=== PATIENT | female | born 1975 | race Two or more races ===

== ENCOUNTER 2018-09-06 19:42 | Emergency (ER) | payer SELFPAY ==
[2018-09-06] MEDS ORDERED: NS 500 ML IV ONE (20:21)
[2018-09-06] MEDS ORDERED: ONDANSETRON 4 MG/2 ML VIAL IVP ONE (20:21)
[2018-09-06] MEDS ORDERED: HYDROmorphONE/DILAUDID 2 MG/ML INJ IVP ONE (20:21)
[2018-09-06] MEDS ORDERED: DEXAMETHASONE 10 MG/ML VIAL IVP ONE (20:37)
[2018-09-06] MEDS ORDERED: METOCLOPRAMIDE 10 MG/2 ML VIAL IVP ONE (20:37)
--- NOTE | 2018-09-06 20:37 | EDPHY ---
H & P Time Seen by Provider: 09/06/18 20:06 HPI/ROS: HPI Headache. 43-year-old female by private vehicle with her . This patient reports that she developed a gradual onset posterior headache about 1 week ago. She reports that has been persistent since then. She reports that has been bothering her at night when she is laying flat and she has had a difficult time sleeping because of this. She describes it as an aching and throbbing pain. She also states that it is worse when she bends forward. She has not had any associated nausea or vomiting. No changes in vision. Denies any neck pain. No bowel or bladder incontinence. No confusion. No loss of sensation or weakness in her extremities. 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 Clayton Norman. ROS: Constitutional: No fever, no chills. No weakness. Eyes: No discharge. No changes in vision. ENT: No sore throat. No nasal congestion or rhinorrhea. Respiratory: No cough. No shortness of breath. Cardiac: No chest pain, no palpitations. Gastrointestinal: No abdominal pain, no vomiting, no diarrhea. Genitourinary: No hematuria. No dysuria or increased frequency with urination. Musculoskeletal: No back pain. No neck pain. No myalgias or arthralgias. Skin: No rashes. Neurological: As above. No focal weakness or altered sensation. Past medical history: Left parietal craniectomy to remove lytic bone lesion July of 2015. She does have an allergy to CT contrast dye. Migraine headaches and . Social history: Nonsmoker. Here with her . No alcohol. Physical Exam: General Appearance: Alert, she appears well. She does not appear in distress. This patient is responding to questions appropriately and in full sentences. This patient appears well-hydrated and well-nourished. Eyes: Pupils equal and round and reactive to light at 3-2 mm bilaterally. No photophobia. No nystagmus. No pallor or injection. No lid edema, erythema or injection. On funduscopic exam I do not appreciate papilledema. Respiratory: There are no retractions, lungs are clear to auscultation with good air movement bilaterally. Cardiovascular: Regular rate and rhythm. No murmur. Gastrointestinal: Abdomen is soft and nontender, no masses, bowel sounds normal. No focal tenderness at McBurney's point. No Tucker sign. Neurological: Motor sensory function is grossly intact. Cranial nerves are normal. Gait is normal. Skin: Warm and dry, no rashes. Musculoskeletal: Neck is supple and nontender. No pain on flexion of her neck. Extremities are symmetrical. All joints range without pain or impingement. Psychiatric: No agitation. No depression. Database: EKG: Imaging: Noncontrast CT head: Essentially negative. No acute pathology. No CT evidence of hydrocephalus. Results were discussed with staff radiologist Dr. Kike Johnson. Procedures: Procedure: Lumbar puncture. Indication: Headache, symptoms to suggest idiopathic intracranial hypertension. After verbal informed consent from patient explaining the risks including infection, bleeding, and neurologic damage, a lumbar puncture was performed after the patient was prepped and draped in the usual fashion. The back was anesthetized with 1% lidocaine. Approximately 12 cc of clear fluid was obtained. Opening pressure 200 mm of mercury. There were no complications. The procedure was performed by myself. Emergency department course: Triage vital signs reviewed and are normal. IV was placed. She was started on IV normal saline with 500 cc to be given over the next hour. She was initially given 0.5 mg of IV hydromorphone and 4 mg of IV Zofran. This was then followed by 25 mg of IV Benadryl, 10 mg of IV Reglan and 10 mg of IV Decadron. Need for CT imaging discussed with the patient. She endorses. 9:40 p.m., the patient is feeling better. She denies any significant headache at this time. She is medicated as above. Speaking with her through a swing type lathe operator I explained the results of her CT imaging. I explained my concern about possible idiopathic intracranial hypertension. I discussed doing a lumbar puncture. The risks of this procedure were discussed. She verbally consents. 10:20 p.m., spoke with on-call [place] neurologist Dr. Anna. Case discussed with him in detail. Opening pressure was upper limit of normal. The patient's presentation however is classic for idiopathic intracranial hypertension. He recommended that we start the patient on acetazolamide 250 mg 3 times daily and have her follow up with Neurology locally later this week. Visual acuities were performed in the emergency department and are 20/25 bilaterally without correction. 10:50 p.m., CSF results are unremarkable. The patient was re-evaluated. She states that she is feeling much better. She denies any headache currently. Repeat neurologic Assessment is nonfocal. She is up and ambulatory with a normal gait. She feels comfortable going home. Plan will be to treat her for presumed idiopathic intracranial hypertension. I will start her on a low-dose of acetazolamide as recommended by Neurology above. Follow-up with Neurology was discussed with her and her . Return to emergency department precautions reviewed. All of their questions were answered. The patient was discharged from the emergency department in good condition with her . All communication and discharge instructions were done with a swing type lathe operator. Differential Diagnosis: The differential diagnosis on this patient includes but is not limited to migraine headache, idiopathic intracranial hypertension. Hydrocephalus, preeclampsia, subarachnoid hemorrhage, meningitis, encephalitis unlikely. This represents a partial list of diagnoses considered. These considerations are based on history, physical exam, past history, reassessment and diagnostic testing. Smoking Status: Never smoked Constitutional: Initial Vital Signs Heart Rate 77 09/06/18 19:51 Respiratory Rate 18 09/06/18 19:51 Blood Pressure 123/73 H 09/06/18 19:51 O2 Sat (%) 99 09/06/18 19:51 O2 Delivery Mode Room Air Allergies/Adverse Reactions: Iodinated Contrast- Oral and IV Dye [IV Dye, Iodine Containing] Allergy (Severe , Verified 09/06/18 19:50) Home Medications: Medication Instructions Recorded Acetaminophen [Tylenol 325mg (*)] 650 mg PO Q4 PRN #0 tab 01/08/16 Ibuprofen 09/06/18 acetaZOLAMIDE [Diamox] 250 mg PO TID #21 tab 09/06/18 Medical Decision Making - Data Points Laboratory Results: Laboratory Results 09/06/18 21:20 09/06/18 21:20 Microbiology Results: MICROBIOLOGY 09/06/18 21:59 Cerebral Spinal Fluid Gram Stain - Final 09/06/18 21:59 Cerebral Spinal Fluid CSF Culture - Preliminary Medications Given: Discontinued Medications Dexamethasone (Decadron Injection) 10 mg IVP EDNOW ONE Stop: 09/06/18 20:38 Last Admin: 09/06/18 21:15 Dose: 10 mg Diphenhydramine HCl (Benadryl Injection) 25 mg IVP EDNOW ONE Stop: 09/06/18 20:38 Last Admin: 09/06/18 21:12 Dose: 25 mg Hydromorphone HCl (Dilaudid) 0.5 mg IVP EDNOW ONE Stop: 09/06/18 20:22 Last Admin: 09/06/18 21:10 Dose: 0.5 mg Sodium Chloride (Ns) 500 mls @ 0 mls/hr IV ONCE ONE; Wide Open PRN Reason: Protocol Stop: 09/06/18 20:22 Last Admin: 09/06/18 21:07 Dose: 500 mls Metoclopramide HCl (Reglan Injection) 10 mg IVP EDNOW ONE Stop: 09/06/18 20:38 Last Admin: 09/06/18 21:13 Dose: 10 mg Ondansetron HCl (Zofran) 4 mg IVP EDNOW ONE Stop: 09/06/18 20:22 Last Admin: 09/06/18 21:07 Dose: 4 mg Departure - Departure Disposition: Home, Routine, Self-Care Clinical Impression: Headache, Idiopathic intracranial hypertension Condition: Good Instructions: Idiopathic Intracranial Hypertension (ED) Additional Instructions: Read and follow provided instructions. Follow-up with Neurology, Dr. Kike Jung or 1 of his partners this week for re -evaluation as discussed. Call his office tomorrow morning for appointment time. Explain this is for an emergency department follow-up Take medication as prescribed. Return to the emergency department for worsening headache, confusion, nausea and vomiting, visual changes or other serious concerns. Tania y siga las instrucciones proveidas - - Leandro wilma shahana de seguimiento con el Dr. Kike Jung, Neurologo o con chad de monisha compaero esta semana a gerber lo comentamos. Llame a correa oficina para la hota de la shahana. Expliquele que es un seguimiento de la daniel de emergencia. - [place] el medicamento recetado. - Regrese a la daniel de emergencia si empeora el dolor de louie, confusion, nause y vomito, cambios en la vista u otras preocupaciones serias. Referrals: Kike Jung DO [Medical Doctor] - As per Instructions Prescriptions: acetaZOLAMIDE [Diamox] 250 mg PO TID #21 tab
[2018-09-06 21:40] LABS: PLATELET COUNT 315 10^3/uL (150-400)
[2018-09-06 23:50] VITALS: BP 106/74
== END 2018-09-06 23:35 | disposition home or self-care (01) ==
PROC: 009U3ZX Drainage of Spinal Canal, Percutaneous Approach, Diagnostic (ICD-10-PCS; principal; 2018-09-06)
DX: G93.2 Benign intracranial hypertension (principal)
CPT/HCPCS: 96374; J1100; J1170; J1200; J2405; J2765

== ENCOUNTER 2018-09-08 15:10 | Emergency (ER) | payer SELFPAY ==
[2018-09-08] MEDS ORDERED: DEXAMETHASONE 10 MG/ML VIAL IVP ONE (15:46)
[2018-09-08] MEDS ORDERED: NS 1,000 ML IV ONE (15:46)
[2018-09-08] MEDS ORDERED: METOCLOPRAMIDE 10 MG/2 ML VIAL IVP ONE (15:46)
[2018-09-08] MEDS ORDERED: HYDROmorphONE/DILAUDID 2 MG/ML INJ IVP ONE (15:49)
--- NOTE | 2018-09-08 15:53 | EDPHY ---
H & P Stated Complaint: Headache for 1 week getting worse. Time Seen by Provider: 09/08/18 15:33 HPI/ROS: CHIEF COMPLAINT: Headache HISTORY OF PRESENT ILLNESS: The patient is a 43-year-old female who comes to the emergency department complaining of a headache. She states that it is primarily in her face excluding her chin and that she does have some tingling in her face. She was seen here 3 days ago at that time she is complaining of a positional headache worse when she lays down or bends forward. She does not state that is the case today. She states that she is nauseous but has not vomited. She states that that is new from 2 days ago as well. She denies vision changes. She has a history of lytic bone lesion of her skull that was removed in 2016 without complications. She also has a remote history of migraines but states she has not had 1 in over a decade. When she was seen here 2 days ago she had a negative CT scan and a lumbar puncture that was negative other than a borderline elevated opening pressure of 20 cm. She felt better after the lumbar puncture the and medications. Neurology was consulted and the decision was made based on her history and slightly borderline opening pressure to start her on acetazolamide and have her follow up with local Neurology. She denies fevers. She denies trauma. The no focal weakness or deficits. No difficulty with balance. No vertigo. She states that her headache was better until yesterday evening when it gradually returned. Severity: Moderate Modifying factors: No improvement with ibuprofen taken earlier today or with the acetazolamide she is taking at home. REVIEW OF SYSTEMS: Constitutional: denies: chills, fever, recent illness, recent injury EENTM: denies: blurred vision, double vision, nose congestion Respiratory: denies: cough, shortness of breath Cardiac: denies: chest pain, irregular heart rate, lightheadedness, palpitations Gastrointestinal/Abdominal: See HPI denies: abdominal pain, diarrhea, vomiting , blood streaked stools Genitourinary: denies: dysuria, frequency, hematuria, pain Musculoskeletal: denies: joint pain, muscle pain Skin: denies: lesions, rash, jaundice, bruising Neurological: See HPI denies: numbness, paresthesia, tingling, dizziness, weakness Hematologic/Lymphatic: denies: blood clots, easy bleeding, easy bruising Immunologic/allergic: denies: HIV/AIDS, transplant 10 systems reviewed and negative except as noted EXAM: GENERAL: Well-appearing, well-nourished and in no acute distress. HEAD: Atraumatic, normocephalic. EYES: Pupils equal round and reactive to light, extraocular movements intact, sclera anicteric, conjunctiva are normal. No papilledema, visual acuities appear to be similar to 2 days ago. ENT: TMs normal, nares patent, oropharynx clear without exudates. Moist mucous membranes. NECK: Normal range of motion, supple without lymphadenopathy or JVD. LUNGS: Breath sounds clear to auscultation bilaterally and equal. No wheezes rales or rhonchi. HEART: Regular rate and rhythm without murmurs, rubs or gallops. ABDOMEN: Soft, nontender, normoactive bowel sounds. No guarding, no rebound. No masses appreciated. BACK: No CVA tenderness, no spinal tenderness, step-offs or deformities EXTREMITIES: Normal range of motion, no pitting or edema. No clubbing or cyanosis. NEUROLOGICAL: Cranial nerves II through XII grossly intact. Normal speech, normal gait. 5/5 strength, normal movement in all extremities, normal sensation , normal reflexes PSYCH: Normal mood, normal affect. SKIN: Warm, dry, normal turgor, no visible rashes or lesions. Source: Patient Exam Limitations: Language barrier - Personal History Current Tetanus Diphtheria and Acellular Pertussis (TDAP): Yes Tetanus Vaccine Date: < 10 years - Medical/Surgical History Hx Asthma: No Hx Chronic Respiratory Disease: No Hx Diabetes: No Hx Cardiac Disease: No Hx Renal Disease: No Hx Cirrhosis: No Hx Alcoholism: No Hx HIV/AIDS: No Hx Splenectomy or Spleen Trauma: No Other PMH: migraines, skull lytic lesion resected, C section x 4 - Family History Significant Family History: No pertinent family hx - Social History Smoking Status: Never smoked Alcohol Use: None Constitutional: Initial Vital Signs Temperature (C) 36.6 C 09/08/18 15:21 Heart Rate 75 09/08/18 15:21 Respiratory Rate 16 09/08/18 15:21 Blood Pressure 109/72 09/08/18 15:21 O2 Sat (%) 97 09/08/18 15:21 O2 Delivery Mode Room Air O2 (L/minute) 2 Allergies/Adverse Reactions: Iodinated Contrast- Oral and IV Dye [IV Dye, Iodine Containing] Allergy (Severe , Verified 09/06/18 19:50) Home Medications: Medication Instructions Recorded Acetaminophen [Tylenol 325mg (*)] 650 mg PO Q4 PRN #0 tab 01/08/16 Ibuprofen 09/06/18 acetaZOLAMIDE [Diamox] 250 mg PO TID #21 tab 09/06/18 Metoclopramide [Reglan 10 mg tab 10 mg PO BID PRN #10 tab 09/08/18 (RX)] Medical Decision Making - Diagnostics Imaging: Discussed imaging studies w/ e learning coordinator Radiologist ED Course/Re-evaluation: 5:40 p.m. the patient's MRI lab workup is reassuring. She states that her headache is gone from a 10/10 to a 5/10. She would like more medicine. Will treat with Tylenol and a dose of ketamine and observe. 6:15 p.m. Patient currently sleeping. We will continue to observe. 7:00 p.m. the patient is feeling completely better. She is ready to go home. Will prescribe her Reglan to take as needed for headaches. She will follow up with Dr. Jung next week as previously referred. Discussed indications for returning. Differential Diagnosis: Partial list of the Differential diagnosis considered include but were not limited to; migraine, tension headache, intracranial hypertension and although unlikely based on the history and physical exam, I also considered dissection, thrombosis, infection, hemorrhage, mass. I discussed these differential diagnoses and the plan with the patient as well as the usual and expected course. The patient understands that the diagnosis is provisional and that in medicine we are not always correct and that further workup is often warranted. Usual and customary warnings were given. All of the patient's questions were answered. The patient was instructed to return to the emergency department should the symptoms at all worsen or return, otherwise to followup with the physician as we discussed. - Data Points Laboratory Results: Laboratory Results 09/08/18 16:15 09/08/18 15:45 Medications Given: Discontinued Medications Acetaminophen (Tylenol) 1,000 mg PO EDNOW ONE Stop: 09/08/18 17:39 Last Admin: 09/08/18 17:48 Dose: 1,000 mg Dexamethasone (Decadron Injection) 10 mg IVP EDNOW ONE Stop: 09/08/18 15:47 Last Admin: 09/08/18 16:00 Dose: 10 mg Hydromorphone HCl (Dilaudid) 1 mg IVP EDNOW ONE Stop: 09/08/18 15:50 Last Admin: 09/08/18 15:55 Dose: 1 mg Sodium Chloride (Ns) 1,000 mls @ 0 mls/hr IV ONCE ONE; Wide Open PRN Reason: Protocol Stop: 09/08/18 15:47 Last Admin: 09/08/18 15:54 Dose: 1,000 mls Ketamine HCl (Ketamine) 15 mg IVP EDNOW ONE Stop: 09/08/18 17:40 Last Admin: 09/08/18 17:48 Dose: 15 mg Metoclopramide HCl (Reglan Injection) 10 mg IVP EDNOW ONE Stop: 09/08/18 15:47 Last Admin: 09/08/18 15:57 Dose: 10 mg Departure - Departure Disposition: Home, Routine, Self-Care Clinical Impression: Headache Qualifiers: Headache type: unspecified Headache chronicity pattern: acute headache Intractability: not intractable Qualified Code(s): R51 - Headache Condition: Fair Instructions: Acute Headache (ED) Referrals: Alexandra Suárez MD [Primary Care Provider] - As per Instructions Kike Jung DO [Medical Doctor] - 2-3 days without fail Prescriptions: Metoclopramide [Reglan 10 mg tab (RX)] 10 mg PO BID PRN #10 tab PRN Reason: Headache
[2018-09-08 16:29] LABS: PLATELET COUNT 299 10^3/uL (150-400)
[2018-09-08] MEDS ORDERED: ACETAMINOPHEN 500 MG TAB PO ONE (17:38)
[2018-09-08] MEDS ORDERED: KETAMINE 200 MG/20 ML VIAL IVP ONE (17:39)
[2018-09-08 19:22] VITALS: BP 98/64
== END 2018-09-08 19:23 | disposition home or self-care (01) ==
DX: R51 Headache (principal); E86.9 Volume depletion, unspecified
CPT/HCPCS: 96374; J1100; J1170; J2765